=== PATIENT | female | born 1960 | race Caucasian/White ===

== ENCOUNTER → 2017-12-04 | Outpatient (CLI) | payer MEDICAID | END | disposition home or self-care (01) | LOC: CFH 07:29 | PROVIDERS: ATTEND Family Medicine | DX: M19.011 Primary osteoarthritis, right shoulder (principal) ==

== ENCOUNTER → 2018-07-22 | Outpatient (CLI) | payer MEDICAID ==
[~2018-07-22] MED LIST: FENTANYL PF 100 MCG/2ML ONE; FLUMAZENIL 0.1 MG/1 ML, 5ML ONE; MIDAZOLAM 1 MG/ML, 5ML ONE; NALOXONE 1 MG/ML, 2ML ONE
== END | disposition home or self-care (01) ==
LOC: RAD 07:37
PROVIDERS: ATTEND Psychiatry & Neurology Neurology
DX: M25.78 Osteophyte, vertebrae (principal); M54.10 Radiculopathy, site unspecified
CPT/HCPCS: 72141; 72146; 72148; 99156; 99157; J2250; J3010; J2310